=== PATIENT | female | born 1985 | race Asian ===

== ENCOUNTER 2018-10-07 00:11 | Emergency (ER) | payer MEDICAID ==
[~2018-10-07] VITALS: Ht 157.5 cm; Wt 49.9 kg
[2018-10-07] MEDS ORDERED: NKM (00:19)
--- NOTE | 2018-10-07 00:25 | NUR ---
ED Nurse Note: Recieved pt from home with c/o right foot pain x 2 days at 02/09, pt denies injury, fall or any other complaitns, states took otc meds which were not effective, pt is with and denies cp, sob, or any other complaints or discomforts.
--- NOTE | 2018-10-07 00:29 | Emergency Room Report ---
History of Present Illness General Chief Complaint: Pain Source: Patient Present Illness HPI 33-year-old female with no past medical history. She presents with chief complaint of right foot pain. Woke up with the pain. Pain is throbbing in nature. No relief with ibuprofen. Pain is to the arch of her foot. No trauma. Worse with walking. No fever chills but no nausea no vomiting. No radiation. Pain is 8 out of 10. Allergies: Coded Allergies: No Known Allergies (Unverified , 10/07/18) Patient History Past Medical History: see triage record, old chart reviewed Past Surgical History: none Pertinent Family History: none Social History: Denies: smoking Last Menstrual Period: 10/06/18 Now: No : 1 Para: 1 Immunizations: other Reviewed Nursing Documentation: PMH: Agreed; PSxH: Agreed Nursing Documentation-PMH Past Medical History: No Stated History Review of Systems Eye: Denies: eye pain, blurred vision ENT: Denies: ear pain, nose congestion, throat swelling Respiratory: Denies: cough, shortness of breath Cardiovascular: Denies: chest pain, palpitations Gastrointestinal: Denies: abdominal pain, diarrhea, nausea, vomiting Musculoskeletal: Reports: joint pain; Denies: back pain Skin: Denies: rash Neurological: Denies: headache, numbness Endocrine: Denies: increased thirst, increased urine Hematologic/Lymphatic: Denies: easy bruising All Other Systems: negative except mentioned in HPI Physical Exam Vital Signs Date Time Temp Pulse Resp B/P (MAP) Pulse Ox O2 Delivery O2 Flow Rate FiO2 10/07/18 00:15 97.9 81 19 98 Room Air vitals normal Sp02 EP Interpretation: reviewed, normal General Appearance: well appearing, no apparent distress, alert Head: normocephalic, atraumatic Eyes: bilateral eye PERRL, bilateral eye EOMI ENT: hearing grossly normal, normal pharynx Neck: full range of motion, supple, no meningismus Respiratory: chest non-tender, lungs clear, normal breath sounds Cardiovascular #1: regular rate, rhythm, no murmur Gastrointestinal: normal bowel sounds, non tender, no mass, no organomegaly, no bruit, non-distended Musculoskeletal: back normal, normal range of motion, other - Right foot: She has tenderness the sole of her foot over the arch area. No redness. no warmth. Psychiatric: mood/affect normal Skin: warm/dry Medical Decision Making Diagnostic Impression: Primary Impression: Plantar fasciitis of right foot ER Course Patient presents with the pain to the bottom of her foot. No evidence of any infection or abscess but no evidence of any DVT. Other X-Ray Diagnostic Results Other X-Ray Diagnostic Results : X-Ray ordered: Right foot x-rays # of Views/Limited Vs Complete: 1 View Indication: Pain EP Interpretation: Yes Interpretation: no dislocation, no soft tissue swelling, no fractures Impression: No acute disease Electronically Signed by: Keegan Tatum MD Last Vital Signs Date Time Temp Pulse Resp B/P (MAP) Pulse Ox O2 Delivery O2 Flow Rate FiO2 10/07/18 00:15 97.9 81 19 98 Room Air Status: improved Disposition: HOME, SELF-CARE Condition: Stable Scripts Ibuprofen* (MOTRIN*) 600 Mg Tablet 600 MG ORAL THREE TIMES A DAY, #30 TAB 0 Refills Prov: Keegan Tatum MD 10/07/18 Hydrocodone/Acetaminophen 5-325* (HYDROCODONE/ACETAMINOPHEN 5-325*) 1 Each Tablet 1 TAB ORAL Q6H PRN for For Pain, #15 TAB 0 Refills Prov: Keegan Tatum MD 10/07/18 Additional Instructions: Elevate foot. Rest as much as possible. Follow-up with your doctor in 7 days. Return if worse. Keegan Tatum MD October 07, 2018 00:29
[2018-10-07] MEDS ORDERED: HYDROcodone/Acetamin 5/325 tab ORAL ONE (00:30)
[2018-10-07] MEDS ORDERED: HYDROcodone/Acetamin 5/325 tab ONE (00:38)
[2018-10-07 00:55] VITALS: BP 100/64
[2018-10-07] MEDS ORDERED: HYDROCODON-ACE1 EA15 ORAL (00:55)
[2018-10-07] MEDS ORDERED: IBUPROFEN600 MG ORAL (00:55)
--- NOTE | 2018-10-07 01:00 | NUR ---
ER DISCHARGE NOTE: Patient is cleared to be discharged per ERMD, pt is aox4, on room air, with stable vital signs. pt was given dc and prescription instructions, pt was able to verbalize understanding, pt id band and iv site removed without complications. pt is able to ambulate with steady gait. pt took all belongings.pt given crutches with crutch training and return demonstrates proper use and safety measures.
[2018-10-07 01:07] VITALS: BP 100/64
--- NOTE | 2018-10-07 12:00 | Diagnostic Imaging Report ---
Indication: Pain Technique: XRAY Foot Complete R Comparison: None Findings: Bone mineralization within normal limits. There is no evidence of acute fracture or dislocation. Accessory navicular noted. Lisfranc alignment of the foot is maintained. No radiopaque foreign body identified. Impression: No acute fracture or dislocation. Additional findings as above.
== END 2018-10-07 01:00 | disposition home or self-care (01) ==
LOC: EMR 00:40
DX: M72.2 Plantar fascial fibromatosis (principal)
CPT/HCPCS: 99283